=== PATIENT | male | born 1985 | race African-American/Black ===

== ENCOUNTER 2016-12-10 12:37 | Emergency (ER) | payer BC ==
[~2016-12-10] VITALS: Ht 193 cm; Wt 104.0 kg
[~2016-12-10 12:37] MED LIST: AVELOX400 MG PO; NO MEDS; PHENYTOIN EX100 M1 PO; ULTRAM50 M1 PO
[2016-12-10] MEDS ORDERED: VIMPAT50 MG PO (12:53)
[2016-12-10 13:44] VITALS: BP 130/70
== END 2016-12-10 13:47 | disposition home or self-care (01) | DRG 153 ==
LOC: ED 12:37
DX: J06.9 Acute upper respiratory infection, unspecified (principal); G40.909 Epilepsy, unspecified, not intractable, without status epilepticus; Z86.011 Personal history of benign neoplasm of the brain

== ENCOUNTER 2016-12-29 23:34 | Emergency (ER) | payer BC ==
[~2016-12-29] VITALS: Ht 193 cm; Wt 110.0 kg
[~2016-12-29 23:34] MED LIST changes: +VIMPAT50 MG PO
[2016-12-29] MEDS ORDERED: VIMPAT100 MG PO (23:52)
[2016-12-30 00:17] LABS: HEMATOCRIT 45.2 % (39.0-50.0); HEMOGLOBIN 14.8 g/dl (14.0-18.0); IMMATURE GRANULOCYTES 1.3 % (0.0-1.0); MEAN CELL VOLUME 88.3 fL CALC (80.0-100.0); MEAN CORPUSCULAR HGB 28.9 pG CALC (26.0-32.0); MEAN CORPUSCULAR HGB CONC 32.7 g/L CALC (32.0-36.0); NEUT# 3.83 thou/uL (1.82-7.42); RED BLOOD COUNT 5.12 mill/uL (4.70-6.10); RED CELL DISTRI WIDTH 13.1 % (11.5-15.5)
[2016-12-30 00:21] LABS: BARBITURATES NEGATIVE (NEGATIVE); COCAINE NEGATIVE (NEGATIVE); METHADONE NEGATIVE (NEGATIVE); OXCYCODONE NEGATIVE (NEGATIVE); TETRAHYDROCANNABIONOL NEGATIVE (NEGATIVE); TRICYLIC ANTIDEPRESSANTS NEGATIVE (NEGATIVE)
[2016-12-30 00:29] LABS: ALBUMIN 4.9 g/dL (3.2-5.0); ALKALINE PHOSPHATASE 72 u/l (38-126); ANION GAP 31 (6-22 (CALC)); BILIRUBIN, TOTAL 0.3 mg/dL (0.0-1.4); BUN 8 mg/dL (9-20); BUN/CREATININE RATIO 7 (12-20 (CALC)); CALCIUM 9.9 mg/dL (8.4-10.2); CARBON DIOXIDE 13 mmol/l (22-30); CHLORIDE 100 mmol/l (95-108); CREATININE 1.3 mg/dL (0.7-1.3); ETHYL ALCOHOL 0 mg/dl (0-30); GFR > 60 ML/MIN (>=60 (CALC)); GFR FOR AFR.AMER. > 60 ML/MIN (>=60 (CALC)); GLUCOSE 94 mg/dL (75-110); POTASSIUM 4.3 mmol/l (3.5-5.1); SGOT/AST 23 u/l (17-59); SGPT/ALT 28 u/l (21-72); SODIUM 139 mmol/l (137-146); TOTAL PROTEIN 8.1 g/dL (6.3-8.2)
[2016-12-30 02:43] VITALS: BP 129/60
== END 2016-12-30 02:35 | disposition home or self-care (01) | DRG 101 ==
LOC: ED 23:34
PROVIDERS: Emergency Medicine
DX: G40.909 Epilepsy, unspecified, not intractable, without status epilepticus (principal); S00.572A Other superficial bite of oral cavity, initial encounter

== ENCOUNTER 2018-04-02 22:41 | Emergency (ER) | payer SELFPAY ==
[~2018-04-02] VITALS: Ht 193 cm; Wt 110.0 kg
[~2018-04-02 22:41] MED LIST changes: +VIMPAT100 MG PO
[2018-04-02] MEDS ORDERED: ULTRAM50 M1 PO (23:21)
[2018-04-02] MEDS ORDERED: LORTAB 1010 MG PO (23:24)
[2018-04-02 23:28] VITALS: BP 129/68
== END 2018-04-02 23:38 | disposition home or self-care (01) | DRG 563 ==
LOC: ED 22:41
DX: S82.62XA Displaced fracture of lateral malleolus of left fibula, initial encounter for closed fracture (principal); G40.909 Epilepsy, unspecified, not intractable, without status epilepticus; F17.290 Nicotine dependence, other tobacco product, uncomplicated; X50.1XXA Overexertion from prolonged static or awkward postures, initial encounter; Y93.61 Activity, american tackle football; Y92.213 High school as the place of occurrence of the external cause

== ENCOUNTER 2019-01-13 01:19 | Emergency (ER) | payer SELFPAY ==
[~2019-01-13] VITALS: Ht 193 cm; Wt 105.0 kg
[~2019-01-13 01:19] MED LIST changes: +LORTAB 1010 MG PO
[2019-01-13 02:17] VITALS: BP 132/76
== END 2019-01-13 02:16 | disposition home or self-care (01) | DRG 159 ==
LOC: ED 01:19
PROC: 0CQ1XZZ Repair Lower Lip, External Approach (ICD-10-PCS; principal; 2019-01-13)
DX: S01.511A Laceration without foreign body of lip, initial encounter (principal); X58.XXXA Exposure to other specified factors, initial encounter; Y92.009 Unspecified place in unspecified non-institutional (private) residence as the place of occurrence of the external cause

== ENCOUNTER 2021-11-27 14:48 | Emergency (ER) | payer SELFPAY ==
[~2021-11-27] VITALS: Ht 193 cm; Wt 98.0 kg
[2021-11-27 15:08] VITALS: BP 140/66
[2021-11-27] MEDS ORDERED: VIMPAT200 MG PO (15:24)
[2021-11-27 15:31] VITALS: BP 127/65
[2021-11-27 15:46] VITALS: BP 133/65
[2021-11-27 15:59] LABS: HEMATOCRIT 44.5 % (39.0-50.0); HEMOGLOBIN 14.5 g/dl (14.0-18.0); IMMATURE GRANULOCYTES 0.2 % (0.0-5.0); MEAN CELL VOLUME 87.9 fL CALC (80.0-100.0); MEAN CORPUSCULAR HGB 28.7 pG CALC (26.0-32.0); MEAN CORPUSCULAR HGB CONC 32.6 g/dL CAL (32.0-36.0); NEUT# 2.16 thou/uL (1.82-7.42); RED BLOOD COUNT 5.06 mill/uL (4.70-6.10); RED CELL DISTRI WIDTH 13.2 % (11.5-15.5)
[2021-11-27 16:00] LABS: URINE BILIRUBIN - DIPSTICK NEGATIVE (NEGATIVE); URINE BLOOD DIPSTICK NEGATIVE (NEGATIVE); URINE COLOR YELLOW; URINE GLUCOSE - DIPSTICK NEGATIVE (NEGATIVE); URINE KETONE NEGATIVE (NEGATIVE); URINE LEUK ESTERASE NEGATIVE (NEGATIVE); URINE PROTEIN - DIPSTICK NEGATIVE (NEG-TRACE); URINE SPECIFIC GRAVITY 1.025; URINE UROBILINOGEN - DIPSTICK 0.2 E.U./dL (0.2)
[2021-11-27 16:01] LABS: URINE NITRITE - DIPSTICK NEGATIVE (Negative)
[2021-11-27 16:11] LABS: ALBUMIN 4.3 g/dL (3.2-5.0); ALKALINE PHOSPHATASE 46 u/l (38-126); BUN 13 mg/dL (9-20); BUN/CREATININE RATIO 12 (12-20 (CALC)); CHLORIDE 104 mmol/l (95-108); CREATININE 1.1 mg/dL (0.7-1.3); ETHYL ALCOHOL 0 mg/dl (0-30); GFR > 60 ML/MIN (>=60 (CALC)); GFR FOR AFR.AMER. > 60 ML/MIN (>=60 (CALC)); POTASSIUM 3.6 mmol/l (3.5-5.1); SGOT/AST 29 u/l (17-59); SODIUM 137 mmol/l (137-146); TOTAL PROTEIN 7.5 g/dL (6.3-8.2)
[2021-11-27 16:12] LABS: ANION GAP 12 (6-22 (CALC)); BILIRUBIN, TOTAL 0.6 mg/dL (0.0-1.4); CARBON DIOXIDE 25 mmol/l (22-30)
[2021-11-27 16:17] LABS: ACT PARTIAL THROMBO TIME 26.6 SECONDS (20.0-32.5); INTERNATIONAL NORMALIZED RATIO 1.1 RATIO (0.7-1.3); PROTHROMBIN TIME 11.5 SECONDS (9.0-12.5)
[2021-11-27 16:50] VITALS: BP 133/65
== END 2021-11-27 16:58 | disposition home or self-care (01) | DRG 948 ==
LOC: ED 14:48
DX: R41.3 Other amnesia (principal); G40.909 Epilepsy, unspecified, not intractable, without status epilepticus; Z86.011 Personal history of benign neoplasm of the brain

== ENCOUNTER 2022-03-31 23:54 | Emergency (ER) | payer SELFPAY ==
[~2022-03-31] VITALS: Ht 193 cm; Wt 109.0 kg
[~2022-03-31 23:54] MED LIST changes: +VIMPAT200 MG PO
[2022-04-01 00:04] VITALS: BP 119/56
[2022-04-01 00:31] VITALS: BP 114/70
[2022-04-01 00:34] LABS: HEMATOCRIT 43.5 % (39.0-50.0); HEMOGLOBIN 14.1 g/dl (14.0-18.0); IMMATURE GRANULOCYTES 0.6 % (0.0-5.0); MEAN CELL VOLUME 89.5 fL CALC (80.0-100.0); MEAN CORPUSCULAR HGB CONC 32.4 g/dL CAL (32.0-36.0); NEUT# 2.99 thou/uL (1.82-7.42); RED BLOOD COUNT 4.86 mill/uL (4.70-6.10); RED CELL DISTRI WIDTH 13.6 % (11.5-15.5)
[2022-04-01 00:35] LABS: URINE BILIRUBIN - DIPSTICK NEGATIVE (NEGATIVE); URINE BLOOD DIPSTICK SMALL (NEGATIVE); URINE COLOR YELLOW; URINE GLUCOSE - DIPSTICK NEGATIVE (NEGATIVE); URINE KETONE NEGATIVE (NEGATIVE); URINE LEUK ESTERASE NEGATIVE (NEGATIVE); URINE PH 5.5 (4.5-8.0); URINE PROTEIN - DIPSTICK 30 mg/dL (NEG-TRACE); URINE SPECIFIC GRAVITY >=1.030; URINE UROBILINOGEN - DIPSTICK 0.2 E.U./dL (0.2)
[2022-04-01 00:48] LABS: URINE NITRITE - DIPSTICK NEGATIVE (Negative)
[2022-04-01 00:50] LABS: URINE RBC 0-2 RBC/hpf (0-5)
[2022-04-01 01:35] LABS: ALBUMIN 4.8 g/dL (3.2-5.0); ALKALINE PHOSPHATASE 49 u/l (38-126); ANION GAP 20 (6-22 (CALC)); BILIRUBIN, TOTAL 0.3 mg/dL (0.0-1.4); BUN 12 mg/dL (9-20); BUN/CREATININE RATIO 9 (12-20 (CALC)); CARBON DIOXIDE 18 mmol/l (22-30); CHLORIDE 105 mmol/l (95-108); CREATININE 1.3 mg/dL (0.7-1.3); GFR FOR AFR.AMER. > 60 ML/MIN (>=60 (CALC)); GFR OTHER RACES > 60 ML/MIN (>=60 (CALC)); POTASSIUM 4.6 mmol/l (3.5-5.1); SGOT/AST 39 u/l (17-59); SODIUM 138 mmol/l (137-146); TOTAL PROTEIN 7.8 g/dL (6.3-8.2)
[2022-04-01 01:43] VITALS: BP 114/70
== END 2022-04-01 01:51 | disposition home or self-care (01) | DRG 101 ==
LOC: ED 23:54
PROVIDERS: Emergency Medicine
DX: G40.909 Epilepsy, unspecified, not intractable, without status epilepticus (principal); Z20.822 Contact with and (suspected) exposure to COVID-19

== ENCOUNTER 2022-04-20 09:30 | Emergency (ER) | payer SELFPAY ==
[~2022-04-20] VITALS: Ht 193 cm; Wt 109.0 kg
[2022-04-20 09:36] VITALS: BP 133/72
[2022-04-20 10:00] LABS: HEMATOCRIT 48.7 % (39.0-50.0); HEMOGLOBIN 15.5 g/dl (14.0-18.0); IMMATURE GRANULOCYTES 0.7 % (0.0-5.0); MEAN CELL VOLUME 90.2 fL CALC (80.0-100.0); MEAN CORPUSCULAR HGB 28.7 pG CALC (26.0-32.0); MEAN CORPUSCULAR HGB CONC 31.8 g/dL CAL (32.0-36.0); NEUT# 3.63 thou/uL (1.82-7.42); RED BLOOD COUNT 5.4 mill/uL (4.70-6.10); RED CELL DISTRI WIDTH 13.4 % (11.5-15.5)
[2022-04-20 10:21] LABS: ALBUMIN 5.1 g/dL (3.2-5.0); ALKALINE PHOSPHATASE 59 u/l (38-126); BUN 12 mg/dL (9-20); BUN/CREATININE RATIO 8 (12-20 (CALC)); CHLORIDE 102 mmol/l (95-108); CPK 719 u/l (52-200); CREATININE 1.4 mg/dL (0.7-1.3); ETHYL ALCOHOL 0 mg/dl (0-30); GFR FOR AFR.AMER. > 60 ML/MIN (>=60 (CALC)); GFR OTHER RACES 57 ML/MIN (>=60 (CALC)); MAGNESIUM 1.9 mg/dL (1.6-2.3); SGOT/AST 32 u/l (17-59); SODIUM 140 mmol/l (137-146); TOTAL PROTEIN 8.4 g/dL (6.3-8.2)
[2022-04-20 10:31] VITALS: BP 124/49
[2022-04-20 10:33] LABS: ANION GAP 32 (6-22 (CALC)); BILIRUBIN, TOTAL 0.5 mg/dL (0.0-1.4); CARBON DIOXIDE 10 mmol/l (22-30)
[2022-04-20 11:01] VITALS: BP 122/70
[2022-04-20 11:31] VITALS: BP 90/67
[2022-04-20 12:02] VITALS: BP 114/85
[2022-04-20 12:10] VITALS: BP 114/85
== END 2022-04-20 12:19 | disposition home or self-care (01) | DRG 101 ==
LOC: ED 09:30
PROVIDERS: Internal Medicine
DX: G40.409 Other generalized epilepsy and epileptic syndromes, not intractable, without status epilepticus (principal); T42.76XA Underdosing of unspecified antiepileptic and sedative-hypnotic drugs, initial encounter; Z91.128 Patient's intentional underdosing of medication regimen for other reason
CPT/HCPCS: J1953